=== PATIENT | female | born 1955 | race Caucasian/White ===

== ENCOUNTER 2017-10-05 07:25 | Outpatient (CLI) | payer BC ==
--- NOTE | 2017-10-05 10:43 | MMO ---
SCREENING MAMMOGRAPHY: DATE: 10/05/17. COMPARISON: 11/12/15, 09/27/14. HISTORY: Screening mammography.. FINDINGS: The patient's mammogram is interpreted with the assistance of computer-aided detection. Breast parenchyma is composed of scattered fibroglandular densities. Punctate benign-appearing microcalcifications are noted bilaterally. There is a new mass density in the right breast measuring 7 mm, within the retroglandular fat in the deep breast posterior to the nipple on CC and MLO imaging. IMPRESSION: BI-RADS 0 - incomplete. Further imaging assessment advised. New 7-8 mm mass within the right breast for which diagnostic mammography and focused breast ultrasound is advised. POS: PAULINO
== END 2017-10-05 07:26 | disposition home or self-care (01) ==
LOC: SCSMAMMO 07:25
PROVIDERS: ATTEND Family Medicine
DX: Z12.31 Encounter for screening mammogram for malignant neoplasm of breast (principal); N63.10 Unspecified lump in the right breast, unspecified quadrant
CPT/HCPCS: 77067

== ENCOUNTER 2017-10-17 08:34 | Outpatient (CLI) | payer BC | END 2017-10-17 08:35 | disposition home or self-care (01) | LOC: BICMAMMO 08:34 | PROVIDERS: ATTEND Family Medicine | DX: N63.10 Unspecified lump in the right breast, unspecified quadrant; N64.89 Other specified disorders of breast | CPT/HCPCS: G0279 ==

== ENCOUNTER 2017-11-14 12:07 | Outpatient (CLI) | payer BC | END 2017-11-14 12:08 | disposition home or self-care (01) | LOC: BICRAD 12:07 | PROVIDERS: ATTEND Family Medicine | DX: M25.562 Pain in left knee (principal) ==

== ENCOUNTER 2019-01-30 13:19 | Outpatient (CLI) | payer BC ==
--- NOTE | 2019-01-30 14:07 | BD ---
DEXA BONE DENSITOMETRY: (Dual energy X-ray Absorptiometry) 01/30/19 HISTORY: 63-year-old white female for age-related postmenopausal, osteoporosis screening examination. Ht. 64 inches. Wt. 235 lb. Age of menopause: 43 years. COMPARISON: None available. FINDINGS: The bone mineral density (BMD) is given in grams per square centimeter (g/cm2): LUMBAR SPINE: BMD(g/cm2) T-score Z-score L1: 0.990 0.0 1.6 L2: 1.075 0.4 2.2 L3: 1.055 -0.3 1.6 L4: 1.087 0.2 2.2 Total: 1.054 0.1 1.9 HIP: Femoral neck: 0.719 -1.2 0.4 Total: 0.929 -0.1 1.2 FRAX WHO Fracture Risk Assessment Tool: 10 Year Fracture Risk * Major osteoporotic fracture: 7.5%. Hip fracture: 0.6% Reported Risk Factors: US(), Neck BMD=0.719, BMI=40.3. * Fracture probability is calculated for an untreated patient. Fracture probability may be lower if the patient has received treatment. IMPRESSION: 1) The mean bone mineral density of the lumbar spine is normal. Fracture risk is not increased. 2) The bone mineral density of the femoral neck is osteopenic. Fracture risk is increased. JN R POS: CET
--- NOTE | 2019-01-30 16:05 | MMO ---
Bilateral MAMMO Bilat Screen DDI+LEV. CLINICAL HISTORY: Patient is 63 years old and is seen for screening. The patient has no family history of breast cancer. The patient has no personal history of cancer. VIEWS: The views performed were: bilateral craniocaudal with tomosynthesis and bilateral mediolateral oblique with tomosynthesis. FILMS COMPARED: The present examination has been compared to prior imaging studies performed at [facility] on 10/17/2017, and at [facility] on 09/27/2014, 11/12/2015 and 10/05/2017. MAMMOGRAM FINDINGS: There are scattered fibroglandular densities. Finding 1: There are stable benign appearing calcifications seen in both breasts. Finding 2: There is a stable focal asymmetry seen in the posterior of the right breast. There are no suspicious masses, suspicious calcifications, or new areas of architectural distortion. IMPRESSION: THERE IS NO MAMMOGRAPHIC EVIDENCE OF MALIGNANCY. A ROUTINE FOLLOW-UP MAMMOGRAM IN 1 YEAR IS RECOMMENDED. THE RESULTS OF THIS EXAM WERE SENT TO THE PATIENT. ACR BI-RADS Category 2 - Benign finding MAMMOGRAPHY NOTE: 1. A negative mammogram report should not delay a biopsy if a dominant of clinically suspicious mass is present. 2. Approximately 10% to 15% of breast cancers are not detected by mammography. 3. Adenosis and dense breasts may obscure an underlying neoplasm. Reported by: JENN MORTON MD Electonically Signed: [id number]
== END 2019-01-30 13:20 | disposition home or self-care (01) ==
LOC: BICMAMMO 13:19
PROVIDERS: ATTEND Family Medicine
DX: Z12.31 Encounter for screening mammogram for malignant neoplasm of breast (principal); Z13.820 Encounter for screening for osteoporosis; Z78.0 Asymptomatic menopausal state; M85.88 Other specified disorders of bone density and structure, other site
CPT/HCPCS: 77063; 77067; 77080

== ENCOUNTER 2020-04-22 13:03 | Outpatient (CLI) | payer MEDICARE, BC ==
--- NOTE | 2020-04-22 14:24 | MMO ---
Bilateral MAMMO Bilat Screen DDI+LEV. CLINICAL HISTORY: Patient is 64 years old and is seen for screening. The patient has no family history of breast cancer. The patient has no personal history of cancer. VIEWS: The views performed were: bilateral craniocaudal with tomosynthesis and bilateral mediolateral oblique with tomosynthesis. FILMS COMPARED: The present examination has been compared to prior imaging studies performed at [facility] on 10/17/2017 and 01/30/2019, and at [facility] on 11/12/2015 and 10/05/2017. This study has been interpreted with the assistance of computer-aided detection. MAMMOGRAM FINDINGS: There are scattered fibroglandular densities. There is an asymmetry seen in the posterior outer region of the left breast. In the right breast, there are no suspicious masses, calcifications or areas of architectural distortion. IMPRESSION: ASYMMETRY IN THE LEFT BREAST REQUIRES ADDITIONAL EVALUATION. SPOT COMPRESSION IS RECOMMENDED. AN ULTRASOUND EXAM IS RECOMMENDED IF NEEDED. THE RESULTS OF THIS EXAM WERE SENT TO THE PATIENT. ACR BI-RADS Category 0 - Incomplete: Need additional imaging evaluation. [facility] will notify the patient of the need for additional imaging services. MAMMOGRAPHY NOTE: 1. A negative mammogram report should not delay a biopsy if a dominant of clinically suspicious mass is present. 2. Approximately 10% to 15% of breast cancers are not detected by mammography. 3. Adenosis and dense breasts may obscure an underlying neoplasm. Reported by: Mundo MCLEOD Electonically Signed: [id number]
== END 2020-04-22 13:04 | disposition home or self-care (01) ==
LOC: BICMAMMO 13:03
PROVIDERS: ATTEND Family Medicine
DX: Z12.31 Encounter for screening mammogram for malignant neoplasm of breast (principal); N64.89 Other specified disorders of breast
CPT/HCPCS: 77063; 77067

== ENCOUNTER 2020-04-30 09:53 | Outpatient (CLI) | payer MEDICARE, BC ==
--- NOTE | 2020-04-30 10:19 | MMO ---
Left Breast MAMMO Unilat Diag DDI LT+LEV. CLINICAL HISTORY: Patient is 64 years old and is seen for diagnostic exam. The patient has no family history of breast cancer. The patient has no personal history of cancer. VIEWS: The views performed were: left craniocaudal with tomosynthesis; left mediolateral oblique with tomosynthesis; and left mediolateral with tomosynthesis. FILMS COMPARED: The present examination has been compared to prior imaging studies performed at [facility] on 10/17/2017, 01/30/2019 and 04/22/2020, and at [facility] on 10/05/2017. This study has been interpreted with the assistance of computer-aided detection. MAMMOGRAM FINDINGS: There are scattered fibroglandular densities. Tomosynthesis spot compression images show the abnormality to represent superimpostion of normal breast parenchyma. There are no suspicious masses, suspicious calcifications, or new areas of architectural distortion. IMPRESSION: THERE IS NO MAMMOGRAPHIC EVIDENCE OF MALIGNANCY. A ROUTINE FOLLOW-UP MAMMOGRAM IN 1 YEAR IS RECOMMENDED. THE RESULTS OF THIS EXAM WERE SENT TO THE PATIENT. ACR BI-RADS Category 2 - Benign finding MAMMOGRAPHY NOTE: 1. A negative mammogram report should not delay a biopsy if a dominant of clinically suspicious mass is present. 2. Approximately 10% to 15% of breast cancers are not detected by mammography. 3. Adenosis and dense breasts may obscure an underlying neoplasm. Reported by: JESSE ORTA MD Electonically Signed: [id number]
== END 2020-04-30 09:54 | disposition home or self-care (01) ==
LOC: BICMAMMO 09:53
PROVIDERS: ATTEND Family Medicine
DX: R92.2 Inconclusive mammogram (principal)
CPT/HCPCS: 77065; G0279

== ENCOUNTER 2023-02-02 09:33 | Outpatient (CLI) | payer MEDICARE, BC | END 2023-02-02 09:34 | disposition home or self-care (01) | LOC: BICMRI 09:33 | PROVIDERS: ATTEND Surgery | DX: C50.911 Malignant neoplasm of unspecified site of right female breast (principal) | CPT/HCPCS: 36415; 80053; A9577; C8908 ==

== ENCOUNTER 2023-02-16 11:23 | Day surgery (SDC) | payer MEDICARE, BC ==
[2023-02-15 11:53] VITALS: BMI 41.1
[2023-02-16 13:16] LABS: #Eosinphils 0.2 thou/uL (0.0-0.7); #Monocytes 0.5 thou/uL (0.11-0.59); #Neutrophils 3.2 thou/uL (1.40-6.50); %Basophils 0.7 % (0.0-1.0); %Eosinophils 3.6 % (0.0-10.0); %Monocytes 8.7 % (0.0-10.0); %Neutrophils 53.5 % (42.0-75.0); Hematocrit 40.5 % (36.0-47.0); Hemoglobin 13.6 g/dL (12.0-16.0); Mean Corpuscular HGB CONC 33.6 g/dL (32.0-36.0); Mean Corpuscular Hemoglobin 31.3 pg (27.0-31.0); Mean Corpuscular Volume 93.3 fl (78.0-98.0); Mean Platelet Volume 10.2 fL (7.4-10.4); Platelet Count 224 10x3/uL (130-400); RBC Distribution Width 12.2 % (11.5-14.5); Red Blood Cell (RBC) Count 4.34 mill/uL (4.20-5.40); White Blood Cell (WBC) Count 5.9 10x3/uL (4.8-10.8)
[2023-02-16] MEDS ORDERED: Acetaminophen 500 MG TAB ONE (13:17)
[2023-02-16] MEDS ORDERED: fentaNYL PF 100 MCG/2 ML SYRINGE ONE (14:10)
[2023-02-16] MEDS ORDERED: Bupivacaine 0.25% HCL 30 ML VIAL ONE (14:11)
[2023-02-16] MEDS ORDERED: EPINEPHrine 1 MG/ML AMP ONE (14:11)
[2023-02-16] MEDS ORDERED: CEFAZOLIN 2 GM VIAL ONE (14:18)
[2023-02-16] MEDS ORDERED: Sodium Chloride 0.9% 100 ML ONE (14:18)
[2023-02-16] MEDS ORDERED: Dexamethasone 20 MG/5 ML VIAL ONE (14:31)
[2023-02-16] MEDS ORDERED: PROPOFOL 200 MG/20 ML VIAL ONE (14:31)
[2023-02-16] MEDS ORDERED: Lidocaine 1% PF 5 ML VIAL ONE (14:31)
[2023-02-16] MEDS ORDERED: Ondansetron PF 4 MG/2 ML Vial ONE (14:31)
[2023-02-16] MEDS ORDERED: fentaNYL 50 mcg/mL 1 mL Vial ONE (15:48)
== END 2023-02-16 16:58 | disposition home or self-care (01) ==
LOC: SDC 11:23
PROVIDERS: ATTEND Surgery
PROC: 0HBT0ZZ Excision of Right Breast, Open Approach (ICD-10-PCS; principal; 2023-02-16)
DX: C50.911 Malignant neoplasm of unspecified site of right female breast (principal); I10 Essential (primary) hypertension; E78.00 Pure hypercholesterolemia, unspecified; F32.A Depression, unspecified; Z79.899 Other long term (current) drug therapy; Z90.710 Acquired absence of both cervix and uterus; Z88.1 Allergy status to other antibiotic agents
CPT/HCPCS: 19301; 85025; J3010; 88307; 88341; 88342; J0171; J1100; J2405; J2704; J3490; S0020

== ENCOUNTER 2023-06-07 15:03 | Outpatient (CLI) | payer MEDICARE, BC | END 2023-06-07 15:04 | disposition home or self-care (01) | LOC: BICMAMMO 15:03 | PROVIDERS: ATTEND Internal Medicine | DX: Z13.820 Encounter for screening for osteoporosis (principal); C50.412 Malignant neoplasm of upper-outer quadrant of left female breast; M85.852 Other specified disorders of bone density and structure, left thigh | CPT/HCPCS: 77080 ==

== ENCOUNTER 2023-12-01 08:58 | Outpatient (CLI) | payer MEDICARE | END 2023-12-01 08:59 | disposition home or self-care (01) | LOC: BICMAMMO 08:58 | PROVIDERS: ATTEND Orthopaedic Surgery | DX: Z08 Encounter for follow-up examination after completed treatment for malignant neoplasm (principal); D05.11 Intraductal carcinoma in situ of right breast; Z85.3 Personal history of malignant neoplasm of breast | CPT/HCPCS: 77066; G0279 ==